=== PATIENT | female | born 1995 | race Caucasian/White ===

== ENCOUNTER 2019-09-03 12:35 | Outpatient (CLI) | payer BC, OTHER ==
[2019-09-03] MEDS ORDERED: LIDOCAINE 1%, 10ML ONE (12:42)
[2019-09-03] MEDS ORDERED: OMNIPAQUE 300 MG/ML, 10ML VIAL ONE (13:00)
== END 2019-09-03 23:59 | disposition home or self-care (01) ==
LOC: RAD 12:35
PROVIDERS: ATTEND Physician Assistant Surgical
DX: S46.011A Strain of muscle(s) and tendon(s) of the rotator cuff of right shoulder, initial encounter (principal); X58.XXXA Exposure to other specified factors, initial encounter; Y93.89 Activity, other specified; Y92.89 Other specified places as the place of occurrence of the external cause; Y99.8 Other external cause status
CPT/HCPCS: 23350; 73040; 73222; J3490; Q9967

== ENCOUNTER 2021-01-10 01:10 | Emergency (ER) | payer BC, OTHER ==
[~2021-01-10] VITALS: Ht 157.5 cm; Wt 52.0 kg
[2021-01-10 03:02] LABS: HCG UR SG 1.013 (1.003-1.030); MICROSCOPIC NOT IND
[2021-01-10] MEDS ORDERED: MORPHINE SULFATE 4 MG/ML, 1ML ONE ×2 (03:26→05:10)
[2021-01-10] MEDS ORDERED: ONDANSETRON 2MG/ML, 2ML ONE (03:26)
[2021-01-10] MEDS ORDERED: KETOROLAC 30 MG/1 ML ONE (03:26)
[2021-01-10] MEDS ORDERED: SODIUM CHLORIDE FLUSH 10ML SYR IVF ONE (03:30)
[2021-01-10] MEDS ORDERED: KETOROLAC 30 MG/1 ML IVPush ONE (03:30)
[2021-01-10] MEDS ORDERED: ONDANSETRON 2MG/ML, 2ML IVPush ONE (03:30)
[2021-01-10] MEDS: MORPHINE SULFATE 4 MG/ML, 1ML IVPush PRN ×2 (03:32→05:13)
[2021-01-10 03:36] LABS: BASOPHILS % (AUTO) 1 % (0-1); EOSINOPHILS % (AUTO) 2 % (1-7); LYMPHOCYTES % (AUTO) 27 % (22-44); MEAN CORPUSCULAR HEMOGLOBIN 30.3 pg (27.0-34.8); MEAN CORPUSCULAR HGB CONC 33.6 g/dL (32.4-35.8); MEAN PLATELET VOLUME 10.2 fL (7.4-10.4); MONOCYTES % (AUTO) 8 % (2-9); NEUTROPHILS % (AUTO) 63 % (42-75); PLATELET COUNT 177 x10^3/uL (130-400); RED BLOOD COUNT 4.48 x10^6/uL (3.82-5.3); RED CELL DISTRIBUTION WIDTH 13.3 % (9.6-15.2)
[2021-01-10 03:43] LABS: ALANINE AMINOTRANSFERASE 19 U/L (12-78); ALBUMIN 3.6 g/dL (3.4-5.0); ANION GAP 4 mmol/L (5-15); CALCIUM 8.6 mg/dL (8.5-10.1); CHLORIDE 112 mmol/L (98-107); CREATININE 0.64 mg/dL (0.55-1.02)
[2021-01-10 03:45] LABS: ALKALINE PHOSPHATASE 74 U/L (45-117); BILIRUBIN,TOTAL 0.3 mg/dL (0.2-1.0); TOTAL PROTEIN 6.7 g/dL (6.4-8.2)
[2021-01-10] MEDS ORDERED: PROMETHAZINE 25 MG/ML, 1ML IM ONE (05:00)
[2021-01-10] MEDS ORDERED: PROMETHAZINE 25 MG/ML, 1ML ONE (05:02)
--- NOTE | 2021-01-10 06:45 | NUR ---
REPORT FROM PRAKASH MOLINA
[2021-01-10 06:59] VITALS: BP 104/66
--- NOTE | 2021-01-10 07:00 | NUR ---
Patient given discharge instructions and they have confirmed that they understand the instructions. Patient ambulatory with steady gait.
== END 2021-01-10 07:02 | disposition home or self-care (01) ==
LOC: ED 06:56
DX: N83.291 Other ovarian cyst, right side (principal); K59.00 Constipation, unspecified; R10.31 Right lower quadrant pain
CPT/HCPCS: 36415; 74176; 76856; 80053; 81003; 81025; 85025; 96372; 96374; 96375; 96376; 99285; J1885; J2270; J2405; J2550